=== PATIENT | male | born 1990 | race Caucasian/White ===

== ENCOUNTER 2017-12-14 12:01 | Day surgery (SDC) | payer OTHER ==
[2017-12-14] MEDS ORDERED: PROPOFOL 0 ML (13:48)
[2017-12-14 13:53] LABS: ALANINE AMINOTRANSFERASE 37 IU/L (13-69); ALBUMIN 4.8 g/dl (3.3-4.9); ALBUMIN/GLOBULIN RATIO 1.54; ALKALINE PHOSPHATASE 135 IU/L (42-121); ANION GAP 24 (8-16); ASPARTATE AMINO TRANSFERASE 26 IU/L (15-46); BILIRUBIN,INDIRECT 0.2 mg/dl (0-1.1); BILIRUBIN,TOTAL 0.2 mg/dl (0.2-1.3); BLOOD UREA NITROGEN 57 mg/dl (7-20); CALCIUM 9.5 mg/dl (8.4-10.2); CARBON DIOXIDE 27 mmol/L (21-31); CHLORIDE 98 mmol/L (97-110); CREATININE 8.31 mg/dl (0.61-1.24); GLUCOSE 91 mg/dl (70-220); SODIUM 143 mmol/L (135-144); TOTAL PROTEIN 7.9 g/dl (6.1-8.1)
[2017-12-14 13:54] LABS: POTASSIUM 5.9 mmol/L (3.5-5.1)
== END 2017-12-14 14:37 | disposition home or self-care (01) ==
LOC: GIL 12:01
DX: R10.13 Epigastric pain (principal); Z53.9 Procedure and treatment not carried out, unspecified reason
CPT/HCPCS: 80053

== ENCOUNTER 2018-02-14 03:19 | Emergency (ER) | payer OTHER ==
[2018-02-14] MEDS: ONDANSETRON 4 MG INJ IV ×2 (04:08→06:03)
[2018-02-14] MEDS: morphine 4 MG/ML VIAL IV (04:08)
[2018-02-14 04:15] LABS: ADD MAN DIFF? NO
[2018-02-14 04:17] LABS: BASOPHIL # 0.1 10^3/ul (0.0-0.1); BASOPHILS % 0.9 % (0.0-2.0); EOSINOPHILS # 0.4 10^3/ul (0.0-0.5); HEMATOCRIT 32.3 % (42.0-52.0); HEMOGLOBIN 10.9 g/dl (14.0-18.0); LYMPHOCYTES # 0.9 10^3/ul (0.8-2.9); LYMPHOCYTES % 14.8 % (15.0-51.0); MEAN CORPUSCULAR HEMOGLOBIN 29.6 pg (29.0-33.0); MEAN CORPUSCULAR HGB CONC 33.7 g/dl (32.0-37.0); MEAN CORPUSCULAR VOLUME 87.8 fl (82.0-101.0); MEAN PLATELET VOLUME 10.2 fl (7.4-10.4); MONOCYTE # 0.5 10^3/ul (0.3-0.9); MONOCYTES % 7.9 % (0.0-11.0); NEUTROPHILS % 69.2 % (39.0-77.0); PLATELET COUNT 180 10^3/UL (140-415); RED BLOOD COUNT 3.68 10^6/ul (4.70-6.10); RED CELL DISTRIBUTION WIDTH 15.1 % (11.5-14.5)
[2018-02-14 04:17] LABS: WHITE BLOOD COUNT 5.7 10^3/ul (4.8-10.8)
[2018-02-14 04:32] LABS: ALANINE AMINOTRANSFERASE 77 IU/L (13-69); ALBUMIN 4.2 g/dl (3.3-4.9); ALBUMIN/GLOBULIN RATIO 1.23; ALKALINE PHOSPHATASE 151 IU/L (42-121); ANION GAP 23 (8-16); ASPARTATE AMINO TRANSFERASE 50 IU/L (15-46); BILIRUBIN,INDIRECT 0.4 mg/dl (0-1.1); BILIRUBIN,TOTAL 0.4 mg/dl (0.2-1.3); BLOOD UREA NITROGEN 50 mg/dl (7-20); CALCIUM 8.7 mg/dl (8.4-10.2); CARBON DIOXIDE 29 mmol/L (21-31); CHLORIDE 100 mmol/L (97-110); CREATININE 7.38 mg/dl (0.61-1.24); GLUCOSE 104 mg/dl (70-220); LIPASE 433 U/L (23-300); MAGNESIUM 1.9 mg/dl (1.7-2.5); PHOSPHORUS 6.6 mg/dl (2.5-4.9); POTASSIUM 4.8 mmol/L (3.5-5.1); SODIUM 147 mmol/L (135-144); TOTAL PROTEIN 7.6 g/dl (6.1-8.1)
[2018-02-14] MEDS: morphine 2 MG INJ IV (06:03)
== END 2018-02-14 08:29 | disposition home or self-care (01) ==
LOC: E/R 03:19
DX: R10.84 Generalized abdominal pain (principal); D64.9 Anemia, unspecified; I12.9 Hypertensive chronic kidney disease with stage 1 through stage 4 chronic kidney disease, or unspecified chronic kidney disease; N18.9 Chronic kidney disease, unspecified; Z99.2 Dependence on renal dialysis
CPT/HCPCS: 36415; 74176; 80053; 83690; 83735; 84100; 85025; 96374; 96375; 96376; 99285-25